=== PATIENT | male | born 1975 | race Caucasian/White ===

== ENCOUNTER 2022-11-20 10:07 | Emergency (ER) | payer SELFPAY ==
[~2022-11-20] VITALS: Ht 177 cm; Wt 100.0 kg
--- NOTE | 2022-11-20 11:24 | ED Back Pain ---
General Chief Complaint: General Problems/Pain Stated Complaint: PAIN ALL OVER Nursing Triage Note: PT AMB TO [facility] CO OF R LEG AND DOESNT WANT TO WORK HAS PAIN AND CRAMPING AT TIMES, AND HAS BLOOD IN STOOL FOR A COUPLE DAYS BUT HAS STOPPED TODAY. History of Present Illness Date Seen by Provider: Nov 20, 2022 Time Seen by Provider: 11:00 Initial Comments 47 year old male presents from [facility] for pain and weakness in bilat UEs Right>Left for 1 week. No history of back injuries, pain or surgeries. Denies bowel or bladder incontinence or retention. He has occasional numbness in his legs but not at all times. Ambulates with steady gait. Taking Tylenol for leg pain. In addition, for several years he will have approx 5 days a month with bright red blood in his stools. Has been evaluated in multiple ERs for this and told no hemorrhoids, has never had colonoscopy or cologard. No blood in stools today, no family history of Colon Cancer. Was evaluated at [facility] prior to this and told hgb was normal. Denies N/V/D. Location: Lumbar Spine Timing/Duration: 1 Week Severity: Mild Pain/Injury Location: Back, Lower Extremity Radiation: Upper Legs Method of Injury: Unknown Associated Symptoms: muscle spasms, weakness (intermittent), numbness in legs/feet, tingling in legs/feet; No lower back pain, No loss of bladder control Allergies and Home Medications Allergies Coded Allergies: No Known Drug Allergies (Unverified , 11/20/22) Patient Home Medication List Home Medication List Reviewed: Yes Prednisone (Prednisone) 20 Mg Tab, 40 MG PO DAILY Prescribed by: CASSIE GIBSON on 11/20/22 1125 Review of Systems Constitutional: no symptoms reported, see HPI Gastrointestinal: see HPI, melena Musculoskeletal: see HPI; No back pain; muscle pain, muscle stiffness, muscle cramps, muscle weakness All Other Systems Reviewed Negative Unless Noted: Yes Past Eclsstn-Bagpnj-Fyvjxd Hx Patient Social History Tobacco Use?: Yes Tobacco type used: Cigarettes Smoking Status: Current Everyday Smoker Substance use?: No Alcohol Use?: No Pt feels they are or have been: No Immunizations Up To Date Influenza Vaccine Up-to-Date: No; Not Current Family Medical History Reviewed Nursing Family Hx Physical Exam Vital Signs Vital Signs - First Documented 11/20/22 10:20 Temp 36.6 Pulse 98 Resp 18 B/P (MAP) 142/88 (106) Pulse Ox 98 O2 Delivery Room Air Capillary Refill : Less Than 3 Seconds Height, Weight, BMI Height: '" Weight: lbs. oz. kg; 31.00 BMI Method: General Appearance: No Apparent Distress, WD/WN Cardiovascular: Regular Rate, Rhythm, No Edema, Normal Peripheral Pulses Respiratory: Chest Non Tender, Lungs Clear, Normal Breath Sounds Gastrointestinal: Normal Bowel Sounds, Non Tender, Soft Back: Normal Inspection, No Vertebral Tenderness; No Decreased Range of Motion, No Muscle Spasm, No Vertebral Tenderness; Other (Full sensation to pain and light touch, bilat LEs. Able to walk on Toes and Heels, power V/V L4-S1 on left and L5-S1 on Right. IV+/V L4 on Right. Neg SLR. ) Extremity: Normal Capillary Refill, Normal Inspection, Normal Range of Motion, No Pedal Edema Neurologic/Psychiatric: Alert, Oriented x3, No Motor/Sensory Deficits, Normal Mood/Affect Skin: Normal Color, Warm/Dry Progress/Results/Core Measures Results/Orders Vital Signs/I&O 11/20/22 11/20/22 10:20 11:34 Temp 36.6 36.6 Pulse 98 98 Resp 18 18 B/P (MAP) 142/88 (106) 142/88 Pulse Ox 98 98 O2 Delivery Room Air Room Air Blood Pressure Mean: 106 Progress Progress Note : Time: 11:00 Progress Note patient assessed and discussed findings. No need for further labs or diagnostic imaging at this time. Stressed importance to see PCP and be referred for Colonoscopy. Back/legs should improve with time, will do Prednisone for 3 days. If not improving or worsens, follow up with PCP or return to ED. Patient agreeable with plan and understands importance to have colonoscopy. All questions answered. Departure Impression Primary Impression: Sciatica Qualified Codes: M54.31 - Sciatica, right side Additional Impression: Blood in stool Disposition: 01 HOME, SELF-CARE Condition: Stable Departure-Patient Inst. Decision time for Depature: 11:19 Referrals: [facility] [place] [facility],LOCAL PHYSICIAN (PCP) Primary Care Physician Patient Instructions: Bloody Stools, Adult (DC), Sciatica (DC) Add. Discharge Instructions: Call for appt with your [employer] at [facility], get referral for Colonoscopy LUIS. Alternate Ibuprofen 600 mg and Tylenol 650 mg every 4 hours for pain. Alternate Ice and Heat to Low Back, 20 min at a time. No heavy lifting or aggressive activity. Take Prednisone, as directed. Return to [facility] if symptoms are not improving or worsen. Return to Emergency Dept for new, urgent health care problems. All discharge instructions reviewed with patient and/or family. Voiced understanding. Scripts Prednisone (Prednisone) 20 Mg Tab 40 MG PO DAILY, #6 TAB 0 Refills Prov: CASSIE GIBSON 11/20/22 Copy Copies To 1: CHELLY DIMAS AMY ARNP Nov 20, 2022 11:24
[2022-11-20] MEDS ORDERED: PRD20T PO (11:25)
[2022-11-20 11:34] VITALS: BP 142/88
== END 2022-11-20 11:34 | disposition home or self-care (01) ==
LOC: ER 10:09
DX: M54.30 Sciatica, unspecified side (principal); K92.1 Melena; F17.210 Nicotine dependence, cigarettes, uncomplicated
CPT/HCPCS: 99281